=== PATIENT | female | born 1990 | race African-American/Black ===

== ENCOUNTER 2017-08-07 12:47 | Emergency (ER) | payer OTHER ==
--- NOTE | 2017-08-07 12:59 | PDOC ---
History of Present Illness - General Chief Complaint: Blood Sugar Problem Stated Complaint: LIGHTHEADED Time Seen by Provider: 08/07/17 12:56 - History of Present Illness Initial Comments: 08/07/17 13:08 Ms. June is a 27 yo female with no pmh BIBA after experiencing lightheadedness , generalized weakness, and warmth simultaneously earlier today. She reports she was going to the store when she started getting lightheaded and feeling weak and sat down so she didn't fall. She says the warmth started at her legs and went up during this time. She is currently not experiencing any continued symptoms but is here to be evaluated. Blood sugar in route via EMS was 68. Glucose was administered. The patient denies chest pain, shortness of breath, headache and dizziness. Denies fever, chills, nausea, vomit, diarrhea and constipation. Denies dysuria, frequency, urgency and hematuria. Allergies: NKDA Past History - Past Medical History Allergies/Adverse Reactions: Allergies Allergy/AdvReac Type Severity Reaction Status Date / Time No Known Allergies Allergy Verified 05/28/15 22:22 Home Medications: Ambulatory Orders Naproxen [Naprosyn -] 500 mg PO BID #30 tablet 04/17/15 Amox-Tr/K Cl [Augmentin - 875Mg Tablet] 1 tab PO BID #20 tablet 05/29/15 Ibuprofen [Motrin -] 600 mg PO TID PRN #21 tablet 05/29/15 Asthma: No Cancer: No Cardiac Disorders: No Diabetes: No HTN: No Seizures: No Thyroid Disease: No - Reproductive History (#): 2 Para: 1 - Suicide/Smoking/Psychosocial Hx Smoking Status: No Smoking History: Current some day smoker Have you smoked in the past 12 months: No Number of Cigarettes Smoked Daily: 0 Hx Alcohol Use: No Drug/Substance Use Hx: No Substance Use Type: None Hx Substance Use Treatment: No Review of Systems - Review of Systems Comments:: 08/07/17 13:17 GENERAL/CONSTITUTIONAL: +Weakness/warmth as described above HEAD, EYES, EARS, NOSE AND THROAT: No change in vision. No ear pain or discharge. No sore throat. CARDIOVASCULAR: No chest pain or shortness of breath RESPIRATORY: No cough, wheezing, or hemoptysis. GASTROINTESTINAL: No nausea, vomiting, diarrhea or constipation. GENITOURINARY: No dysuria, frequency, or change in urination. MUSCULOSKELETAL: No joint or muscle swelling or pain. No neck or back pain. SKIN: No rash NEUROLOGIC: +Light headed feeling as described ENDOCRINE: No increased thirst. No abnormal weight change HEMATOLOGIC/LYMPHATIC: No anemia, easy bleeding, or history of blood clots. ALLERGIC/IMMUNOLOGIC: No hives or skin allergy. *Physical Exam - Physical Exam Comments: 08/07/17 13:18 GENERAL: Awake, alert, and fully oriented, in no acute distress HEAD: No signs of trauma, normocephalic, atraumatic EYES: PERRLA, EOMI, sclera anicteric, conjunctiva clear ENT: Auricles normal inspection, hearing grossly normal, nares patent, oropharynx clear without exudates. Moist mucosa NECK: Normal ROM, supple, no lymphadenopathy, JVD, or masses LUNGS: No distress, speaks full sentences, clear to auscultation bilaterally HEART: Regular rate and rhythm, normal S1 and S2, no murmurs, rubs or gallops, peripheral pulses normal and equal bilaterally. ABDOMEN: Soft, nontender, normoactive bowel sounds. No guarding, no rebound. No masses EXTREMITIES: Normal inspection, Normal range of motion, no edema. No clubbing or cyanosis. NEUROLOGICAL: Cranial nerves II through XII grossly intact. Normal speech, normal gait, no focal sensorimotor deficits SKIN: Warm, Dry, normal turgor, no rashes or lesions noted. Medical Decision Making - Medical Decision Making 08/07/17 13:18 Patient admits to only eating some applesauce and crackers this AM when she woke up at 5am. Blood sugar via EMS was 68; increased to 83 after glucose administered en route. Suspect etiology of symptoms low blood sugar. Patient reports resolution of symptoms with glucose - will administer PO challenge and determine status. Will d/c if no further acute events. 08/07/17 13:51 Patient able to eat successfully, continues to feel at baseline. Will d/c to home with instructions to f/u as needed. *DC/Admit/Observation/Transfer Diagnosis at time of Disposition: Low blood sugar - Discharge Dispostion Disposition: HOME - Referrals - Patient Instructions Printed Discharge Instructions: DI for Hypoglycemia Additional Instructions: Please return if you experience fever, chills, pain, or altered mental status. - Post Discharge Activity
--- NOTE | 2017-08-07 13:06 | PDOC ---
Attending Attestation - Resident Resident Name: HughrobeivetteCiro - HPI HPI: 08/08/17 18:30 Pt presents to the ED complaining of presyncope. Patient woke up at 5 am and has not eaten all day. Mildly hypoglycemic on EMS arrival, resolved after eating in the ED. - Physicial Exam PE: 08/08/17 18:30 Agree with resident exam. Patient is well appearing and neurologically intact. - Medical Decision Making 08/08/17 18:31 Pt presents to the ED with presyncope that resolved after eating. Now has no complaints. Will discharge home.
[2017-08-07 13:32] VITALS: BP 107/64; PULSE 71; TEMP 98.7; BMI 20.1
[2017-08-07 13:37] LABS: URINE APPEARANCE SLCLOUDY; URINE BILIRUBIN NEGATIVE (NEGATIVE); URINE BLOOD NEGATIVE (NEGATIVE); URINE COLOR YELLOW; URINE GLUCOSE (UA) NEGATIVE (NEGATIVE); URINE KETONE TRACE (NEGATIVE); URINE NITRITE NEGATIVE (NEGATIVE); URINE PROTEIN NEGATIVE (NEGATIVE)
[2017-08-07 17:21] LABS: URINE LEUK ESTERASE Negative (NEGATIVE)
== END 2017-08-07 14:00 | disposition home or self-care (01) ==
LOC: JER 12:47
DX: E16.2 Hypoglycemia, unspecified (principal)
CPT/HCPCS: 81003; 84703; 99282-25

== ENCOUNTER 2019-05-26 16:18 | Inpatient (IN) | payer OTHER ==
[2019-05-26] MEDS: DEXTROSE 5%-LACTATED RINGERS 1,000 ML IV SCH (16:30)
[2019-05-26 18:09] VITALS: BMI 29.5
[2019-05-26] MEDS ORDERED: TUBERCULIN PPD 5 TU/0.1ML SYRINGE (IN PATIENT USE ONLY) ID ONE (18:15)
[2019-05-26] MEDS ORDERED: PROMETHAZINE HCL 25 MG/1 ML VIAL IVPUSH ONE (19:39)
[2019-05-26] MEDS ORDERED: BUTORPHANOL TARTRATE 1 MG/ML VIAL IVPUSH ONE (19:39)
--- NOTE | 2019-05-26 19:45 | HP ---
Past Medical History - Primary Care Physician PCP:: Isaias Claire - Admission Chief Complaint: 38 weeks, labor History Source: Patient Limitations to Obtaining History: No Limitations - Past Medical History ...: 4 ...Para: 3 ...Term: 0 ...: 3 ...Spon : 0 ...Induced : 0 ...Multiple Gestation: 0 ...LMP: 09/07/19 ... Weeks Gestation by Dates: 37.2 ...EDC by Dates: 06/14/19 ...EDC by Sono: 06/09/19 - Past Surgical History Hx Myomectomy: No Hx Transabdominal Cerclage: No - Smoking History Smoking history: Never smoked Have you smoked in the past 12 months: No Aproximately how many cigarettes per day: 0 - Alcohol/Substance Use Hx Alcohol Use: No History of Substance Use: reports: None - Social History Usual Living Arrangement: Yes: With Spouse History of Recent Travel: No Home Medications - Allergies Allergies/Adverse Reactions: Allergies Allergy/AdvReac Type Severity Reaction Status Date / Time No Known Allergies Allergy Verified 05/28/15 22:22 - Home Medications Home Medications: Ambulatory Orders Prenat 115/Iron Fum/Folic/Dss [ 19 Tablet] 1 tab PO DAILY 05/26/19 Valacyclovir HCl [Valtrex -] 500 mg PO DAILY 05/26/19 Review of Systems - Review of Systems Constitutional: reports: No Symptoms Eyes: reports: No Symptoms HENT: reports: No Symptoms Neck: reports: No Symptoms Cardiovascular: reports: No Symptoms Breasts: reports: No Symptoms Reported Musculoskeletal: reports: No Symptoms Integumentary: reports: No Symptoms Neurological: reports: No Symptoms Endocrine: reports: No Symptoms Hematology/Lymphatic: reports: No Symptoms Psychiatric: reports: No Symptoms Physical Exam - Maternity Vital Signs: Vital Signs Temperature 97.8 F 05/26/19 17:45 Pulse Rate 86 05/26/19 17:45 Respiratory Rate 18 05/26/19 17:45 Blood Pressure 107/65 05/26/19 17:45 O2 Sat by Pulse Oximetry (%) Constitutional: Yes: Well Nourished, No Distress, Calm Eyes: Yes: WNL, Conjunctiva Clear, EOM Intact HENT: Yes: WNL, Atraumatic, Normocephalic Neck: Yes: WNL, Supple, Trachea Midline Cardiovascular: Yes: WNL, Regular Rate and Rhythm Breast(s): Yes: WNL - Abdominal Exam/OB Number of Fetuses: Single Presentation: Vertex Contractions: Yes Regularity: Irregular Intensity: Moderate Monitor Mode: External Heart Rate Location: [facility] Category: I Accelerations: Non-Uniform Decelerations: None - Vaginal Exam/OB Vaginal Bleediing: No Dilatation (cm): 3 Effacement (%): 75 Amniotic Membrane Status: Intact Nitrazine Test: Negative Presentation: Vertex/Position Station: -3 - Physical Exam Edema: Yes Edema: LLE: Trace, RLE: Trace ...Motor Strength: WNL Psychiatric: Yes: WNL Hemorrhage Risk Assessment - Risk Factors Medium Risk Factors: Yes: None High Risk Factors: Yes: None Risk Score: 1 Risk Level: Medium Risk Problem List - Problems (1) with 38 completed weeks gestation Code(s): Z3A.38 - 38 WEEKS GESTATION OF Assessment/Plan admit fhm pain management
[2019-05-26 19:56] LABS: BASO % 0.2 % (0-2.0); EOS % 0.8 % (0-4.5); HEMATOCRIT 33.4 % (32.4-45.2); HEMOGLOBIN 10.6 GM/dL (10.7-15.3); MCH 26.5 pg (25.7-33.7); MCHC 31.8 g/dl (32.0-36.0); MEAN CELL VOLUME 83.2 fl (80-96); MEAN PLT VOLUME 8.3 fl (7.5-11.1); MONO % 6.4 % (3.8-10.2); NEUT % 77.6 % (42.8-82.8); PLATELET COUNT 211 K/MM3 (134-434); RBC 4.01 M/mm3 (3.60-5.2); RDW 16.1 % (11.6-15.6); WHITE BLOOD COUNT 10.3 K/mm3 (4.0-10.0)
[2019-05-26 20:08] LABS: INR 0.91 (0.83-1.09); PROTHROMBIN TIME (PATIENT) 10.7 SEC (9.7-13.0)
[2019-05-26 20:11] LABS: ACTIVATED PTT 30.4 SECONDS (25.2-36.5)
[2019-05-26 20:18] LABS: BLOOD UREA NITROGEN 8.2 mg/dL (7-18); CALCIUM 8.8 mg/dL (8.5-10.1); CREATININE 0.5 mg/dL (0.55-1.3); POTASSIUM 3.8 mmol/L (3.5-5.1)
[2019-05-26] MEDS ORDERED: PROMETHAZINE HCL 25 MG/1 ML VIAL ONE (21:29)
[2019-05-26] MEDS ORDERED: BUTORPHANOL TARTRATE 1 MG/ML VIAL ONE ×2 (21:29)
[2019-05-26] MEDS ORDERED: OXYTOCIN 30 UNITS in 0.9% NS 30 UNIT/500 ML INFUS.BAG IVPB SCH (23:15)
[2019-05-27] MEDS ORDERED: PROMETHAZINE HCL 25 MG/1 ML VIAL ONE (01:47)
[2019-05-27] MEDS ORDERED: BUTORPHANOL TARTRATE 1 MG/ML VIAL ONE ×2 (01:47)
[2019-05-27] MEDS ORDERED: BUTORPHANOL TARTRATE 2 MG/ML VIAL IVPUSH ONE (03:00)
[2019-05-27] MEDS ORDERED: PROMETHAZINE HCL 25 MG/1 ML VIAL IVPB ONE (03:00)
[2019-05-27] MEDS: DEXTROSE 5%-LACTATED RINGERS 1,000 ML IV SCH (05:21)
[2019-05-27] MEDS ORDERED: CITRIC ACID/SODIUM CITRATE 30 ML UNIT-DOSE CUP PO ONE (06:40)
[2019-05-27] MEDS ORDERED: ELECTROLYTE-148 SOLN 500 ML IV ONE (06:40)
[2019-05-27] MEDS ORDERED: ELECTROLYTE-148 SOLN 1,000 ML IV SCH (07:09)
[2019-05-27] MEDS ORDERED: FENTANYL/BUPIVACAINE/NS/PF - PCEA - 50 ML DISP.SYRIN EP ONE (07:10)
[2019-05-27] MEDS ORDERED: NALOXONE HCL 0.4 MG/ML VIAL IVPUSH PRN (07:41)
[2019-05-27] MEDS ORDERED: FENTANYL/BUPIVACAINE/NS/PF - PCEA - 50 ML DISP.SYRIN EP SCH (07:45)
[2019-05-27] MEDS ORDERED: OXYTOCIN 10 UNITS/ML VIAL ONE (09:39)
[2019-05-27] MEDS ORDERED: ceFAZolin SODIUM 1 GM VIAL ONE (09:40)
[2019-05-27] MEDS ORDERED: ONDANSETRON 4 MG/2 ML VIAL IVPUSH PRN (09:59)
[2019-05-27] MEDS ORDERED: METHYLERGONOVINE MALEATE 0.2 MG/1 ML AMP IM PRN (10:11)
[2019-05-27] MEDS ORDERED: oxyCODONE HCL 5 MG TABLET PO PRN ×2 (10:11)
[2019-05-27] MEDS ORDERED: diphenhydrAMINE HCL 25 MG CAPSULE (FP) PO PRN (10:11)
[2019-05-27] MEDS ORDERED: BENZOCAINE 20% 57 GM BOTTLE TP PRN (10:11)
[2019-05-27] MEDS ORDERED: BENZOCAINE 28 GM HEMORRHOIDAL OINTMENT PR PRN (10:11)
[2019-05-27] MEDS ORDERED: WITCH HAZEL 50% (TUCKS) 40 PAD/JAR PAD TP PRN (10:11)
[2019-05-27] MEDS ORDERED: DEXTROSE 5%-LACTATED RINGERS 1,000 ML IV SCH (10:15)
[2019-05-27] MEDS ORDERED: OXYTOCIN 20 UNITS in 0.9% NS 20 UNIT/1,000 ML INFUS.BAG IV SCH (10:15)
[2019-05-27] MEDS ORDERED: ACETAMINOPHEN 1000 MG/100 ML VIAL (NON FORMULARY) IVPB ONE (12:45)
[2019-05-27] MEDS ORDERED: IBUPROFEN 800 MG/8 ML IJ IVPB ONE (13:12)
[2019-05-27] MEDS: IBUPROFEN 800 MG/8 ML IJ IVPB PRN (13:20)
--- NOTE | 2019-05-27 15:06 | PN ---
Progress Note (short form) - Note Progress Note: 745 am had srom, received epidural anesthesia clear fluid cx 8 cm 100 vx -1 mr , fhr cat 2 variable dcel with contraction, good BTBV . good recovery, LT side, o2 . iv fluid bolus , check B.P , will reevaluate Problem List - Problems (1) with 38 completed weeks gestation Code(s): Z3A.38 - 38 WEEKS GESTATION OF
--- NOTE | 2019-05-27 15:10 | PN ---
Progress Note (short form) - Note Progress Note: 8pm cx 8 cm 100 vx -1 mr, clear , still getting variable decl with good variability ,and acceleration.will observe,. possible vaginal delivery soon Problem List - Problems (1) with 38 completed weeks gestation Code(s): Z3A.38 - 38 WEEKS GESTATION OF
--- NOTE | 2019-05-27 15:13 | PN ---
Progress Note (short form) - Note Progress Note: 830 am patient placed in lt and rt with o2 and iv bolus , still cont. to have decel , c/s discussed , wants to know if can push , has pelvic pressure risks discussed. Problem List - Problems (1) with 38 completed weeks gestation Code(s): Z3A.38 - 38 WEEKS GESTATION OF
--- NOTE | 2019-05-27 15:17 | PN ---
Progress Note (short form) - Note Progress Note: 840 cx 9 cm, ant lip, no descent with pushing , FHR cat 2 , variable decel, no tachycardia, good variability, ic/s discussed Problem List - Problems (1) with 38 completed weeks gestation Code(s): Z3A.38 - 38 WEEKS GESTATION OF
[2019-05-27] MEDS ORDERED: OXYTOCIN 20 UNITS in 0.9% NS 20 UNIT/1,000 ML INFUS.BAG IV ONE (15:18)
--- NOTE | 2019-05-27 15:19 | PN ---
Progress Note (short form) - Note Progress Note: 9 am c/s advised and called since has deep variable with no descent. OR finishing up , will do c/s leisa Problem List - Problems (1) with 38 completed weeks gestation Code(s): Z3A.38 - 38 WEEKS GESTATION OF
--- NOTE | 2019-05-27 15:26 | OP ---
Operative Note - Note: Operative Date: 05/27/19 Pre-Operative Diagnosis: non reassuring FHR, CAT 2 tracing Operation: primary LST c/s Findings: live baby girl, 7/9, direct OP position Surgeon: Isaias Claire Anesthesia: Epidural Estimated Blood Loss (mls): 500 Drains & Tubes with Location: cook Blood Volume Replaced (mls): 0 Operative Report Dictated: Yes
[2019-05-27] MEDS: valACYclovir HCL 500 MG TABLET (FP) PO SCH (15:30)
[2019-05-27] MEDS: CEFAZOLIN 1 GM/D5W 1 GM/50 ML BAG IVPB SCH (17:32)
[2019-05-28] MEDS: CEFAZOLIN 1 GM/D5W 1 GM/50 ML BAG IVPB SCH (01:37)
[2019-05-28] MEDS: IBUPROFEN 800 MG/8 ML IJ IVPB PRN (05:09)
--- NOTE | 2019-05-28 06:22 | PN ---
Progress Note (short form) - Note Progress Note: pod 1 no c/o voids ok CBC, BMP 05/26/19 17:45 05/26/19 17:45 Last Vital Signs Temp Pulse Resp BP Pulse Ox 97.7 F 91 H 20 103/61 96 05/28/19 05:04 05/28/19 05:04 05/28/19 06:00 05/28/19 05:04 05/27/19 12:15 abdomen soft, uterus firm , incision dry, clean no excess vaginal bleeding no calf tenderness plan ambulate cbc advance diet Problem List - Problems (1) with 38 completed weeks gestation Code(s): Z3A.38 - 38 WEEKS GESTATION OF
[2019-05-28 08:18] LABS: BASO % 0.4 % (0-2.0); EOS % 0.3 % (0-4.5); HEMATOCRIT 31.9 % (32.4-45.2); HEMOGLOBIN 10.2 GM/dL (10.7-15.3); LYMPH % 9.8 % (8-40); MCH 26.4 pg (25.7-33.7); MCHC 31.9 g/dl (32.0-36.0); MEAN CELL VOLUME 82.7 fl (80-96); MEAN PLT VOLUME 8.3 fl (7.5-11.1); NEUT % 82.5 % (42.8-82.8); PLATELET COUNT 226 K/MM3 (134-434); RBC 3.85 M/mm3 (3.60-5.2); RDW 16.5 % (11.6-15.6); WHITE BLOOD COUNT 18.4 K/mm3 (4.0-10.0)
[2019-05-28] MEDS: valACYclovir HCL 500 MG TABLET (FP) PO SCH (09:33)
[2019-05-28] MEDS ORDERED: BISACODYL 10 MG SUPP.RECT RC PRN (10:11)
--- NOTE | 2019-05-28 14:36 | PN ---
Progress Note (short form) - Note Progress Note: Anesthesia POD#1 S/P under epidural and Duramorph VSS,no N/V,legs strong,pain is moderate, taking oral medications. Kalina Santillan MD.
[2019-05-28] MEDS: IBUPROFEN 600 MG TABLET (FP) PO PRN (17:09)
[2019-05-28] MEDS: ACETAMINOPHEN 325 MG TABLET (FP) PO PRN (17:10)
[2019-05-28] MEDS: SIMETHICONE 80 MG TAB.CHEW (FP) PO PRN (17:11)
[2019-05-29] MEDS: ACETAMINOPHEN 325 MG TABLET (FP) PO PRN ×4 (04:36→21:43)
[2019-05-29] MEDS: IBUPROFEN 600 MG TABLET (FP) PO PRN ×4 (04:36→21:43)
[2019-05-29] MEDS: SIMETHICONE 80 MG TAB.CHEW (FP) PO PRN ×3 (04:36→21:43)
--- NOTE | 2019-05-29 08:27 | PN ---
Post Progress Note - Subjective Subjective: Patient without acute complaints. Reports tolerating oral intake without nausea or vomiting. Ambulating without dizziness. Denies fevers or chills. Pain well controlled with oral pain medication. without difficulty. Passing flatus. Post Day: 2 Type of Delivery: Repeat C/S Vital Signs: Vital Signs Temperature 98.2 F 05/28/19 21:48 Pulse Rate 90 05/28/19 21:48 Respiratory Rate 18 05/28/19 21:48 Blood Pressure 107/55 L 05/28/19 21:48 O2 Sat by Pulse Oximetry (%) 96 05/27/19 12:15 Breast Exam: Yes: Soft Uterus: Yes: Fundus Firm Incision: Yes: Ray intact Abdomen/GI: Yes: Abdomen soft Lochia: Yes: Rubra Lochia, amount: Small Extremities: Yes: Calves non-tender Activity: Ambulating - Labs Labs: CBC WBC 18.4 K/mm3 (4.0-10.0) H 05/28/19 07:30 RBC 3.85 M/mm3 (3.60-5.2) 05/28/19 07:30 Hgb 10.2 GM/dL (10.7-15.3) L 05/28/19 07:30 Hct 31.9 % (32.4-45.2) L 05/28/19 07:30 MCV 82.7 fl (80-96) 05/28/19 07:30 MCH 26.4 pg (25.7-33.7) 05/28/19 07:30 MCHC 31.9 g/dl (32.0-36.0) L 05/28/19 07:30 RDW 16.5 % (11.6-15.6) H 05/28/19 07:30 Plt Count 226 K/MM3 (134-434) 05/28/19 07:30 MPV 8.3 fl (7.5-11.1) 05/28/19 07:30 Absolute Neuts (auto) 15.2 K/mm3 (1.5-8.0) H 05/28/19 07:30 Neutrophils % 82.5 % (42.8-82.8) 05/28/19 07:30 Lymphocytes % 9.8 % (8-40) D 05/28/19 07:30 Monocytes % 7.0 % (3.8-10.2) 05/28/19 07:30 Eosinophils % 0.3 % (0-4.5) 05/28/19 07:30 Basophils % 0.4 % (0-2.0) 05/28/19 07:30 Nucleated RBC % 0 % (0-0) 05/28/19 07:30 Assessment/Plan POD#2 VSS, Afebrile Pain well controlled doing well Rh pos no need for RhoGam cont. Routine care
[2019-05-29] MEDS: valACYclovir HCL 500 MG TABLET (FP) PO SCH (09:47)
[2019-05-29] MEDS ORDERED: SENNOSIDES/DOCUSATE COMBO (SENNA PLUS) TABLET (UD) PO PRN (22:00)
[2019-05-30] MEDS: SIMETHICONE 80 MG TAB.CHEW (FP) PO PRN ×2 (06:03→10:38)
[2019-05-30] MEDS: IBUPROFEN 600 MG TABLET (FP) PO PRN ×2 (06:03→10:36)
[2019-05-30] MEDS: ACETAMINOPHEN 325 MG TABLET (FP) PO PRN ×2 (06:03→10:37)
[2019-05-30 07:42] LABS: BASO % 0.4 % (0-2.0); HEMATOCRIT 26.4 % (32.4-45.2); HEMOGLOBIN 8.6 GM/dL (10.7-15.3); LYMPH % 26.6 % (8-40); MCHC 32.7 g/dl (32.0-36.0); MEAN CELL VOLUME 82.5 fl (80-96); MEAN PLT VOLUME 8.3 fl (7.5-11.1); MONO % 5.7 % (3.8-10.2); NEUT % 63.3 % (42.8-82.8); PLATELET COUNT 208 K/MM3 (134-434); RDW 16.2 % (11.6-15.6); WHITE BLOOD COUNT 7.2 K/mm3 (4.0-10.0)
[2019-05-30] MEDS: valACYclovir HCL 500 MG TABLET (FP) PO SCH (10:42)
--- NOTE | 2019-05-30 13:16 | DS ---
Physical Exam-STATISTICAL CONSULTANT Vital Signs: Vital Signs Temperature 97.5 F L 05/29/19 21:02 Pulse Rate 76 05/29/19 21:02 Respiratory Rate 20 05/29/19 21:02 Blood Pressure 143/85 05/29/19 21:02 O2 Sat by Pulse Oximetry (%) 96 05/27/19 12:15 Constitutional: Yes: Well Nourished, No Distress, Calm Eyes: Yes: WNL, Conjunctiva Clear, EOM Intact HENT: Yes: WNL, Atraumatic, Normocephalic Neck: Yes: WNL, Supple, Trachea Midline Cardiovascular: Yes: WNL, Regular Rate and Rhythm Respiratory: Yes: WNL, Regular, CTA Bilaterally Gastrointestinal: Yes: WNL, Normal Bowel Sounds, Soft External Genitalia: Yes: Normal ....Post : Yes: Uterus firm, Uterus non-tender Breast(s): Yes: WNL Musculoskeletal: Yes: WNL Extremities: Yes: WNL Edema: No Integumentary: Yes: WNL Wound/Incision: Yes: Well Approximated, Ray Intact Neurological: Yes: WNL, Alert, Oriented ...Motor Strength: WNL Psychiatric: Yes: WNL, Alert, Oriented Labs: CBC, BMP 05/30/19 06:30 05/26/19 17:45 Delivery - Delivery Type of Anesthesia: Epidural Episiotomy/Laceration: None EBL (cc): 500 Delivery, Single - Stages of Labor Date 1st Stage Initiatied: 05/26/19 Time 1st Stage Initiated: 21:30 Date of Delivery: 05/27/19 Time of Delivery: 09:38 Time Placenta Delivered: 09:39 - Condition of Market Development Manager/Application Programmer Analyst Present: Yes Name: Jared Borjas Gender: Female Weight: 7 lb 8 oz Position: OP Total Hours ROM (Hrs/Mins): 1Hrs/ 54Mins - 1 Minute Total Score: 7 5 Minutes Total Score: 9 - Feeding Plan Initial Plan: Elected not to breastfeed exclusively throughout hospitalization Discharge Summary Reason For Visit: ADMIT FOR LABOR Current Active Problems with 38 completed weeks gestation (Acute) Procedures: Principal: Primary c/section Hospital Course: Unremarkable Condition: Good - Instructions Diet, Activity, Other Instructions: Physical activity Resume your normal everyday activity as tolerated no heavy lifting or exercise until seen by your surgeon. You may walk unlimited shantell of and climb stairs. You may resume driving the car when you feel safe and comfortable behind the wheel. No sexual activity as instructed. Wound care If you have a bandage, leave it on, and keep dry for 48-72 hours. After that time discard the outer bandage. If they are tapes on the skin under the out of bandage leave them in place. They will peel off in the next 7 to 10 days. Do Not Peel them off. You may shower the day after surgery. If there are tapes present on the skin, you may shower over them. Diet There are no dietary restrictions. Eat healthy, high-fiber foods. Drink 6 to 8 glasses of liquid each day. This will assist in keeping your bowels are regular. Pain management You may take Tylenol or acetaminophen or Ibuprofen (for example, Motrin, Advil etc.) from my pain prescription medication is ordered should be taken as prescribed for moderate to severe pain. Call MD for any of the following: Severe pain not relieved by medication Fever of 101 or higher Excessive bleeding or drainage on dressing Inability to urinate Referrals: Susan Adler MD [Staff Physician] - Disposition: HOME - Home Medications Comprehensive Discharge Medication List: Ambulatory Orders Prenat 115/Iron Fum/Folic/Dss [ 19 Tablet] 1 tab PO DAILY 05/26/19 Valacyclovir HCl [Valtrex -] 500 mg PO DAILY 05/26/19
[2019-05-30 13:37] VITALS: BP 117/60; PULSE 65; TEMP 98.1
--- NOTE | 2019-06-02 17:34 | PATH ---
Surgical Pathology Report Patient Name: BETITO LOPEZ Med. Rec. #: [id number] /Age/Gender: 1990 (Age: 29) / F Account: [id number] Location: [facility] OBS/RESIDENTIAL LEASING AGENT Taken: 05/27/2019 Received: 05/28/2019 Reported: 06/02/2019 Physicians: Isaias Claire M.D. Specimen(s) Received PLACENTA Clinical History , 38.0 weeks, nonreassuring heart rate Final Diagnosis PLACENTA: THIRD TRIMESTER PLACENTA. TRIVASCULAR CORD. MEMBRANES WITH NO DIAGNOSTIC ABNORMALITIES. Electronically Signed Shira Radford M.D. Gross Description The specimen is received fresh labeled placenta and is a 455 gram, 20 x19 x 1.5cm. placenta with attached membranes and umbilical cord. The attached membranes are glistening, translucent, and insert marginally. The umbilical cord measures 7 cm. in length and averages 1.5 cm. in diameter. The cord inserts eccentrically, 2 centimeter to the nearest margin. No true knots or strictures are identified. Cut surface of the umbilical cord reveals 3 vessels. Sectioning reveals red-brown, spongy parenchyma. No lesions are identified. Concrete Carpenter sections are submitted in three cassettes as follows: 1- membrane rolls and umbilical cord; 2-3- full thickness sections of placenta KWS/05/31/2019 elieserki/05/31/2019
== END 2019-05-30 14:50 | disposition home or self-care (01) | DRG 540 ==
LOC: JLDR 16:18 → J3W 05-27 16:00
PROVIDERS: ADMIT Obstetrics & Gynecology; ATTEND Obstetrics & Gynecology
PROC: 10D00Z1 Extraction of Products of Conception, Low, Open Approach (ICD-10-PCS; principal; 2019-05-27)
DX: O76 Abnormality in fetal heart rate and rhythm complicating labor and delivery (principal); Z3A.38 38 weeks gestation of pregnancy; Z37.0 Single live birth
CPT/HCPCS: 36415; 36600; 80048; 82803; 85025; 85610; 85730; 86593; 86850; 86900; 86901; 88307-TC

== ENCOUNTER 2019-06-01 12:56 | Emergency (ER) | payer OTHER ==
[2019-06-01 13:07] VITALS: TEMP 98.4; BMI 27.9
--- NOTE | 2019-06-01 13:57 | PDOC ---
History of Present Illness - General Chief Complaint: Edema Stated Complaint: SENT BY DR ROMO/Georgie LEG SWOLLEN Time Seen by Provider: 06/01/19 13:45 Past History - Past Medical History Allergies/Adverse Reactions: Allergies Allergy/AdvReac Type Severity Reaction Status Date / Time No Known Allergies Allergy Verified 06/01/19 13:03 Home Medications: Ambulatory Orders Ibuprofen [Motrin -] 600 mg PO QID #28 tablet 05/30/19 Oxycodone HCl 5 mg PO Q4HWA #20 capsule MDD 8 05/30/19 Asthma: No Cancer: No Cardiac Disorders: No COPD: No Diabetes: No HTN: No Seizures: No Thyroid Disease: No - Reproductive History (#): 2 Para: 1 - Suicide/Smoking/Psychosocial Hx Smoking Status: No Smoking History: Never smoked Have you smoked in the past 12 months: No Number of Cigarettes Smoked Daily: 0 Information on smoking cessation initiated: No Hx Alcohol Use: No Drug/Substance Use Hx: No Substance Use Type: None Hx Substance Use Treatment: No *Physical Exam - Vital Signs Last Vital Signs Temp Pulse Resp BP Pulse Ox 98.4 F 54 L 18 100/56 L 99 06/01/19 13:06 06/01/19 13:06 06/01/19 13:06 06/01/19 13:06 06/01/19 13:06 *DC/Admit/Observation/Transfer - Referrals Referrals: Sam Jules MD [Primary Care Provider] - - Patient Instructions - Post Discharge Activity
--- NOTE | 2019-06-01 14:42 | PDOC ---
Attending Attestation - Resident Resident Name: María Elena Valencia - ED Attending Attestation I have performed the following: I have examined & evaluated the patient, The case was reviewed & discussed with the resident, I agree w/resident's findings & plan - HPI HPI: 06/01/19 14:38 29-year-old female on 05/27 status post discharge on 05/30 of otherwise uncomplicated , began noticing left lower extremity painless swelling prior to discharge, presents now with persistent swelling and shortness of breath without chest pain. No cough, no fevers or chills. - Physicial Exam PE: 06/01/19 14:39 Vital signs as noted, O2 sat normal, respiratory rate normal, no tachycardia seated comfortably in stretcher speaking full sentences without acute distress no jvd s1s2 rrr, no murmur or ectopy ctab, no crackles/wheeze abd soft, LLE 2+ edema mostly on dorsum of foot, no calf ttp, 2+ distal pulses. 1+ edema on the right - Medical Decision Making 06/01/19 14:41 29-year-old female with left lower extremity swelling and shortness of breath. Uncomplicate course, hemodynamically stable here without acute respiratory distress or evidence of pulmonary edema. Differential includes PE, cardiomyopathy, but seems most consistent with volume overload in the perioperative/ period. Check labs, EKG CTA chest Asians initially tried to sign out AGAINST MEDICAL ADVICE because she has to pick up operator her children at 4 PM, convinced to stay for labs and CT processing and then will call back with results. She is aware of the risks of doing it this way , but says she must pick up operator her kids on time. 06/01/19 16:31 no dvt or pe. trop neg chem pending pt clinically unchanged and well appearing, likely d/c if chem wnl Heart Score/ECG Review #1 ECG reviewed & interpreted by me at: 14:52 General ECG Interpretation: Sinus Rhythm, Normal Rate (45), Normal Intervals ( qtc 397), No acute ischemic changes
--- NOTE | 2019-06-01 14:45 | PDOC ---
History of Present Illness - General Chief Complaint: Edema Stated Complaint: SENT BY DR ROMO/Georgie LEG SWOLLEN Time Seen by Provider: 06/01/19 13:45 - History of Present Illness Initial Comments: 06/01/19 14:44 The patient is a 29 year old female s/p C-S on 05/27 who presents with with chest pain, shortness of breath, LE swelling since Friday evening. Chest pain is pressure like, intermittent, without any noted exacerbating or relieving factors. Shortness of breath at rest, worsened with exertion. Left lower extremity swelling without any pain with ambulation/calf tenderness. Denies any associated productive cough, fevers/chills. No h/o PE or DVT. Is currently breast feeding. NKDA Surgical: C/S Past History - Past Medical History Allergies/Adverse Reactions: Allergies Allergy/AdvReac Type Severity Reaction Status Date / Time No Known Allergies Allergy Verified 06/01/19 13:03 Home Medications: Ambulatory Orders Ibuprofen [Motrin -] 600 mg PO QID #28 tablet 05/30/19 Oxycodone HCl 5 mg PO Q4HWA #20 capsule MDD 8 05/30/19 Asthma: No Cancer: No Cardiac Disorders: No COPD: No Diabetes: No HTN: No Seizures: No Thyroid Disease: No - Reproductive History (#): 2 Para: 1 - Suicide/Smoking/Psychosocial Hx Smoking Status: No Smoking History: Never smoked Have you smoked in the past 12 months: No Number of Cigarettes Smoked Daily: 0 Information on smoking cessation initiated: No Hx Alcohol Use: No Drug/Substance Use Hx: No Substance Use Type: None Hx Substance Use Treatment: No Review of Systems - Review of Systems Constitutional: No: Fever HEENTM: No: Recent change in vision Respiratory: Yes: Shortness of Breath. No: Cough, Wheezing Cardiac (ROS): Yes: Chest Pain, Edema (L foot). No: Lightheadedness, Palpitations, Syncope ABD/GI: No: Constipated, Diarrhea, Nausea, Vomiting : No: Burning *Physical Exam - Vital Signs Last Vital Signs Temp Pulse Resp BP Pulse Ox 98.4 F 54 L 18 100/56 L 99 06/01/19 13:06 06/01/19 13:06 06/01/19 13:06 06/01/19 13:06 06/01/19 13:06 - Physical Exam General Appearance: Yes: Nourished, Appropriately Dressed HEENT: positive: Normal Voice, Hearing Grossly Normal Neck: positive: Trachea midline, Supple Respiratory/Chest: positive: Lungs Clear, Normal Breath Sounds. negative: Rapid RR, Crackles, Wheezing Cardiovascular: positive: S1, S2 Vascular Pulses: Dorsalis-Pedis (R): 2+, Doralis-Pedis (L): 2+ Gastrointestinal/Abdominal: positive: Normal Bowel Sounds, Soft, Other (C/S scar C/D/I). negative: Guarding, Rebound, Tenderness, Hernia, Mass Extremity: positive: Other (L pedal edema, no calf tenderness/(-) Guanaco's sign) Integumentary: positive: Normal Color, Dry, Warm Neurologic: positive: Fully Oriented, Alert Heart Score/ECG Review - ECG Impressions Comment:: 06/01/19 19:12 NSR, HR 45, TWI in septal (V2) and anterior (V3) lead, no STD/PHILLIP ED Treatment Course - LABORATORY CBC & Chemistry Diagram: 06/01/19 14:45 06/01/19 16:58 - RADIOLOGY Radiology Studies Ordered: Category Date Time Status CHEST CTA [CT] Stat CT Scan 06/01/19 14:16 Ordered DUPLEX VASCUL US-1 LEG [US] Stat Ultrasound 06/01/19 14:17 Ordered Medical Decision Making - Medical Decision Making 06/01/19 14:44 29 y/o female 4 days post presents with unilateral lower extremity swelling, CP and shortness of breath. Patient well appearing, HDS with lungs clear to auscultation. Frontal diagnosis : volume overload, r/o PE, r/o DVT, r/o ACS, cardiomyopathy, renal failure (the latter less likely). 06/01/19 15:45 Hb stable Trop negative, CMP hemolyzed Patient @ CTA 06/01/19 16:44 CTA negative for PE U/S negative for DVT Repeat CMP pending to evaluate for LE edema 2/2 to renal failure (low clinical suspicion) Patient remains well appearing Confirm w/financial services counselor that patient is safe for breast feeding s/p IV contrast 06/01/19 18:58 Cr 0.5 At this time patient remains well appearing, no repeat CP in ED. Will discharge home with PMD and [employer]s Sales Representative follow-up, return precautions. Clinical Impression: /serjio-operative volume overload I discussed the physical exam findings, ancillary test results and final diagnoses with the patient. I answered all of the patient's questions. The patient was satisfied with the care received and felt comfortable with the discharge plan and treatment plan. The patient will return to the Emergency Department with any new, persistent or worsening symptoms. 06/01/19 19:24 *DC/Admit/Observation/Transfer Diagnosis at time of Disposition: Shortness of breath - Discharge Dispostion Disposition: HOME Condition at time of disposition: Good Decision to Admit order: No - Referrals Referrals: Sam Jules MD [Primary Care Provider] - - Patient Instructions Printed Discharge Instructions: Fitness, DI for Shortness of Breath Additional Instructions: A cat scan of your lungs and an ultrasound of your legs showed no clot. At this time you are safe for discharge home. You can continue to breast feed as normal. Please make follow-up appointments with your OB-Uniforms Sales Representative and your primary care doctor in the next 3 days. Your care is not complete until you are evaluated by your primary care doctor and [employer]s Sales Representative. Return immediately to the ED with any new/worsening/concerning symptoms. Print Language: ROMANIAN - Post Discharge Activity
[2019-06-01 15:08] LABS: EOS % 1.3 % (0-4.5); HEMATOCRIT 31.7 % (32.4-45.2); HEMOGLOBIN 10.1 GM/dL (10.7-15.3); MCH 26.5 pg (25.7-33.7); MCHC 31.8 g/dl (32.0-36.0); MEAN CELL VOLUME 83.3 fl (80-96); MEAN PLT VOLUME 8.2 fl (7.5-11.1); MONO % 5.6 % (3.8-10.2); NEUT % 68.1 % (42.8-82.8); PLATELET COUNT 291 K/MM3 (134-434); RDW 16.4 % (11.6-15.6); WHITE BLOOD COUNT 7.7 K/mm3 (4.0-10.0)
[2019-06-01 17:41] LABS: ALBUMIN 2.6 g/dl (3.4-5.0); BILIRUBIN,TOTAL 0.4 mg/dL (0.2-1); BLOOD UREA NITROGEN 9.8 mg/dL (7-18); CALCIUM 8.6 mg/dL (8.5-10.1); CREATININE 0.5 mg/dL (0.55-1.3); POTASSIUM 3.6 mmol/L (3.5-5.1); TOT PROT 5.8 g/dl (6.4-8.2)
[2019-06-01 17:47] VITALS: BP 109/76; PULSE 86
--- NOTE | 2019-06-02 11:00 | EKG ---
Test Reason : Blood Pressure : / mmHG Vent. Rate : 045 BPM Atrial Rate : 045 BPM P-R Int : 142 ms QRS Dur : 086 ms QT Int : 460 ms P-R-T Axes : 051 002 035 degrees QTc Int : 397 ms POOR DATA QUALITY, INTERPRETATION MAY BE ADVERSELY AFFECTED SINUS BRADYCARDIA NONSPECIFIC ST AND T WAVE ABNORMALITY ABNORMAL ECG NO PREVIOUS ECGS AVAILABLE Confirmed by SUSAN TURNER MD ([id number]) on 06/02/2019 11:00:19 AM Referred By: Confirmed By:SUSAN TURNER MD
== END 2019-06-01 18:00 | disposition home or self-care (01) ==
LOC: JER 12:56
DX: O90.89 Other complications of the puerperium, not elsewhere classified (principal); E87.79 Other fluid overload
CPT/HCPCS: 36415; 71275-TC; 80053; 82550; 82553; 84484; 85025; 93005; 93010; 93971-TC; 99284-25

== ENCOUNTER 2023-08-20 07:25 | Emergency (ER) | payer OTHER ==
[2023-08-20 07:36] VITALS: RESP 18; BMI 21.7
[2023-08-20] MEDS ORDERED: ACETAMINOPHEN 1000 MG/100 ML BAG IVPB ONE (08:20)
[2023-08-20] MEDS ORDERED: SODIUM CHLORIDE 1,000 ML IV STA ×2 (08:20→11:54)
[2023-08-20] MEDS ORDERED: METOCLOPRAMIDE HCL INJECTION 10 MG/2 ML VIAL IVPUSH ONE (08:47)
[2023-08-20] MEDS ORDERED: METOCLOPRAMIDE HCL INJECTION 10 MG/2 ML VIAL ONE (08:48)
[2023-08-20] MEDS ORDERED: ACETAMINOPHEN INJECTION 100 ML IVPB ONE (08:48)
[2023-08-20 08:52] LABS: BASO % 0.6 % (0-2.0); EOS % 1.7 % (0-4.5); HEMATOCRIT 40.5 % (32.4-45.2); HEMOGLOBIN 13.7 GM/dL (10.7-15.3); LYMPH % 17.7 % (8-40); MCH 30.3 pg (25.7-33.7); MCHC 33.7 g/dl (32.0-36.0); MEAN CELL VOLUME 89.7 fl (80-96); MEAN PLT VOLUME 8.3 fl (7.5-11.1); MONO % 4.9 % (3.8-10.2); NEUT % 75.1 % (42.8-82.8); PLATELET COUNT 245 10^3/uL (134-434); RBC 4.52 M/mm3 (3.60-5.2); RDW 13.5 % (11.6-15.6); WHITE BLOOD COUNT 6.4 K/mm3 (4.0-10.0)
[2023-08-20 09:01] LABS: INR 1.03 (0.83-1.09)
[2023-08-20 09:04] LABS: ACTIVATED PTT 32.5 SECONDS (25.2-36.5)
[2023-08-20 09:29] LABS: POTASSIUM 4.2 mmol/L (3.5-5.1)
[2023-08-20 09:32] LABS: ALBUMIN 4.1 g/dl (3.4-5.0); BLOOD UREA NITROGEN 12.9 mg/dL (7-18); CALCIUM 8.7 mg/dL (8.5-10.1)
[2023-08-20 09:35] LABS: CREATININE 0.7 mg/dL (0.55-1.3)
[2023-08-20 09:37] LABS: BILIRUBIN,TOTAL 0.5 mg/dL (0.2-1); TOT PROT 7.4 g/dl (6.4-8.2)
[2023-08-20 10:34] LABS: MAGNESIUM 2.2 mg/dL (1.8-2.4)
[2023-08-20] MEDS ORDERED: MECLIZINE HCL 25 MG TABLET (FP) PO ONE (10:36)
[2023-08-20] MEDS ORDERED: MECLIZINE HCL 25 MG TABLET (FP) ONE (10:48)
[2023-08-20 11:03] LABS: URINE APPEARANCE CLEAR; URINE BILIRUBIN NEGATIVE (NEGATIVE); URINE COLOR YELLOW; URINE GLUCOSE (UA) NEGATIVE (NEGATIVE); URINE KETONE TRACE (NEGATIVE); URINE LEUK ESTERASE NEGATIVE (NEGATIVE); URINE NITRITE NEGATIVE (NEGATIVE); URINE PROTEIN NEGATIVE (NEGATIVE); URINE UROBILINOGEN 0.2 mg/dL (0.2-1.0)
[2023-08-20 13:12] VITALS: BP 106/58; PULSE 63; TEMP 98.5
== END 2023-08-20 13:20 | disposition home or self-care (01) ==
LOC: JERFT 07:25 → JER 07:25 → JERFT 13:20
PROC: 3E033NZ Introduction of Analgesics, Hypnotics, Sedatives into Peripheral Vein, Percutaneous Approach (ICD-10-PCS; principal; 2023-08-20)
PROC: 3E033GC Introduction of Other Therapeutic Substance into Peripheral Vein, Percutaneous Approach (ICD-10-PCS; 2023-08-20)
PROC: 3E033GC Introduction of Other Therapeutic Substance into Peripheral Vein, Percutaneous Approach (ICD-10-PCS; 2023-08-20)
PROC: 3E0337Z Introduction of Electrolytic and Water Balance Substance into Peripheral Vein, Percutaneous Approach (ICD-10-PCS; 2023-08-20)
PROC: 3E0337Z Introduction of Electrolytic and Water Balance Substance into Peripheral Vein, Percutaneous Approach (ICD-10-PCS; 2023-08-20)
DX: R42 Dizziness and giddiness (principal); R51.9 Headache, unspecified; R11.2 Nausea with vomiting, unspecified
CPT/HCPCS: 36415; 70450-TC; 80053; 81003; 83690; 83735; 84703; 85025; 85610; 85730; 87086; 93005; 93010; 99285-25